=== PATIENT | female | born 1990 | race Caucasian/White ===

== ENCOUNTER 2016-06-20 12:54 | Emergency (ER) | payer OTHER ==
[~2016-06-20] VITALS: Ht 152.4 cm; Wt 47.6 kg
[2016-06-20 13:00] VITALS: BP 141/108
[2016-06-20 13:56] LABS: KETONES,URINE NEGATIVE (NEGATIVE); LEUKOCYTE ESTERASE ,URINE NEGATIVE (NEGATIVE)
[2016-06-20 13:59] LABS: ADD UA MICROSCOPIC YES; PREGNANCY TEST URINE QUAL NEGATIVE (NEGATIVE)
[2016-06-20 14:11] LABS: CANNABINOID, URINE NEGATIVE (NEGATIVE); PHENCYCLIDINE SCREEN,URINE NEGATIVE (NEGATIVE)
[2016-06-20 14:22] LABS: WBC,URINE 0-2 /HPF (0-3)
[2016-06-20 14:23] LABS: ADD URINE CULTURE YES
== END 2016-06-20 14:09 | disposition left against medical advice (07) ==
LOC: ER 12:56
DX: Z04.1 Encounter for examination and observation following transport accident (principal); V49.40XA Driver injured in collision with unspecified motor vehicles in traffic accident, initial encounter; Y93.89 Activity, other specified; Y92.413 State road as the place of occurrence of the external cause; Y99.8 Other external cause status; Z88.0 Allergy status to penicillin; Z88.2 Allergy status to sulfonamides; R82.79 Other abnormal findings on microbiological examination of urine
CPT/HCPCS: 80305; 81001; 84703; 87086; 99284; A4606; Z7610; 81000-TC